=== PATIENT | female | born 1980 | race Caucasian/White ===

== ENCOUNTER → 2017-08-17 | Outpatient (REF) | payer OTHER ==
[~2017-08-17] MED LIST: MOTR200T44 PO; OMEP10CASR PO; PERCOCET PO; ZOLO100T PO
[2017-08-17 11:35] LABS: MEAN CORPUSCULAR HEMOGLOBIN 23.3 pg (27.0-33.0); MEAN CORPUSCULAR HGB CONC 31.6 g/dl (32.0-36.5); RED CELL DISTRIBUTION WIDTH 16.7 % (11.5-14.5); RETIC HEMOGLOBIN EQUIVALENT 29.1 pg (24-36); RETICULOCYTE % 1.2 % (0.5-1.5); WHITE BLOOD COUNT 6.5 10^3/uL (4.0-10.0)
[2017-08-17 11:51] LABS: MEAN CORPUSCULAR VOLUME 73.7 fl (80.0-96.0)
[2017-08-17 11:57] LABS: ALBUMIN 3.7 GM/DL (3.2-5.2); ALBUMIN/GLOBULIN RATIO 0.95 (1.00-1.93); ALKALINE PHOSPHATASE 86 U/L (45-117); ALT/SGPT 16 U/L (12-78); ANION GAP 5 MEQ/L (8-16); AST/SGOT 10 U/L (15-37); BILIRUBIN,TOTAL 0.4 MG/DL (0.2-1.0); BLOOD UREA NITROGEN 13 MG/DL (7-18); CALCIUM LEVEL 8.6 MG/DL (8.5-10.1); CARBON DIOXIDE LEVEL 28 MEQ/L (21-32); CHLORIDE LEVEL 107 MEQ/L (98-107); CHOLESTEROL LEVEL 165 MG/DL (<200); CREATININE FOR GFR 0.87 MG/DL (0.55-1.02); FERRITIN 7 NG/ML (8-252); GLOMERULAR FILTRATION RATE > 60.0 (>60); GLUCOSE, FASTING 90 MG/DL (70-105); PERCENT SATURATION 8.1 % (13.2-45.0); SODIUM LEVEL 140 MEQ/L (136-145); TOTAL IRON BINDING CAPACITY 431 UG/DL (250-450); TOTAL PROTEIN 7.6 GM/DL (6.4-8.2); TRIGLYCERIDES LEVEL 68 MG/DL (<150)
[2017-08-17 12:04] LABS: VITAMIN B12 LEVEL 492 PG/ML (247-911)
== END ==
LOC: M SFHCCLAY 08:30
PROVIDERS: ATTEND Nurse Practitioner Family
DX: F32.9 Major depressive disorder, single episode, unspecified (principal); K21.9 Gastro-esophageal reflux disease without esophagitis; D50.9 Iron deficiency anemia, unspecified; E55.9 Vitamin D deficiency, unspecified

== ENCOUNTER → 2017-09-28 | Outpatient (REF) | payer OTHER ==
[2017-09-28 11:38] LABS: MEAN CORPUSCULAR HEMOGLOBIN 24.1 pg (27.0-33.0); MEAN CORPUSCULAR HGB CONC 31.9 g/dl (32.0-36.5); MEAN CORPUSCULAR VOLUME 75.7 fl (80.0-96.0); PLATELET COUNT, AUTOMATED 275 10^3/uL (150-450); RED CELL DISTRIBUTION WIDTH 17.3 % (11.5-14.5); WHITE BLOOD COUNT 6.1 10^3/uL (4.0-10.0)
[2017-09-28 12:15] LABS: PERCENT SATURATION 9.3 % (13.2-45.0)
== END ==
LOC: M SFHCCLAY 09:15
PROVIDERS: ATTEND Nurse Practitioner Family
DX: D50.9 Iron deficiency anemia, unspecified (principal)

== ENCOUNTER → 2017-11-23 | Outpatient (REF) | payer OTHER | LOC: M LAB REF 18:07 | DX: L72.11 Pilar cyst (principal) ==

== ENCOUNTER → 2017-12-04 | Outpatient (REF) | payer OTHER | LOC: M LAB REF 13:20 | DX: Z12.4 Encounter for screening for malignant neoplasm of cervix (principal) ==

== ENCOUNTER → 2018-04-05 | Outpatient (REF) | payer OTHER ==
[2018-04-05 11:30] LABS: HEMATOCRIT 36.7 % (36.0-47.0); HEMOGLOBIN 11.8 g/dl (12.0-15.5); MEAN CORPUSCULAR HEMOGLOBIN 24.5 pg (27.0-33.0); MEAN CORPUSCULAR HGB CONC 32.2 g/dl (32.0-36.5); MEAN CORPUSCULAR VOLUME 76.3 fl (80.0-96.0); PLATELET COUNT, AUTOMATED 261 10^3/uL (150-450); RED BLOOD COUNT 4.81 10^6/uL (4.00-5.40); RED CELL DISTRIBUTION WIDTH 15.7 % (11.5-14.5); WHITE BLOOD COUNT 5.6 10^3/uL (4.0-10.0)
[2018-04-05 11:50] LABS: FOLATE 19.1 NG/ML (>5.4); TOTAL 25(OH) VITAMIN D 26.5 NG/ML (30.0-100.0)
[2018-04-05 12:20] LABS: FERRITIN 8 NG/ML (8-252); IRON (FE) 34 UG/DL (50-170); TOTAL IRON BINDING CAPACITY 425 UG/DL (250-450)
== END ==
LOC: M SFHCCLAY 08:38
DX: D50.9 Iron deficiency anemia, unspecified (principal); E55.9 Vitamin D deficiency, unspecified

== ENCOUNTER → 2021-04-16 | Outpatient (REF) | payer OTHER | LOC: M SFHCWAGY 13:18 | PROVIDERS: ATTEND Specialist | DX: Z12.4 Encounter for screening for malignant neoplasm of cervix (principal) | CPT/HCPCS: 87624; G0123 ==